=== PATIENT | female | born 1985 | race Caucasian/White ===

== ENCOUNTER → 2016-06-27 | Outpatient (CLI) | payer SELFPAY | END | disposition home or self-care (01) | LOC: CBAR 13:37 | DX: Z01.818 Encounter for other preprocedural examination (principal); E66.01 Morbid (severe) obesity due to excess calories | CPT/HCPCS: G0463 ==

== ENCOUNTER → 2016-07-30 | Outpatient (CLI) | payer SELFPAY | END | disposition home or self-care (01) | LOC: CBAR 15:25 | DX: Z01.818 Encounter for other preprocedural examination (principal); E66.01 Morbid (severe) obesity due to excess calories | CPT/HCPCS: G0463 ==

== ENCOUNTER → 2016-08-27 | Outpatient (CLI) | payer SELFPAY | END | disposition home or self-care (01) | LOC: CBAR 10:18 | DX: Z01.818 Encounter for other preprocedural examination (principal); E66.01 Morbid (severe) obesity due to excess calories | CPT/HCPCS: G0463 ==